=== PATIENT | male | born 1955 | race Two or more races ===

== ENCOUNTER 2017-10-29 12:34 | Emergency (ER) | payer SELFPAY ==
[~2017-10-29] VITALS: Ht 162.6 cm; Wt 67.0 kg
[2017-10-29 13:17] LABS: HEMATOCRIT 43.6 % (38.0-50.0); HEMOGLOBIN 14.7 G/DL (12.5-16.6); MCH 28.7 PG (29.0-34.0); MCHC 33.7 G/DL (30.0-36.0); MCV 85.2 FL (86-99); RBC DIS.WIDTH-CV 12.6 % (11.8-14.6); RED BLOOD COUNT 5.12 M/uL (4.00-5.50); WHITE BLOOD COUNT 11.5 K/uL (4.1-10.2)
[2017-10-29 13:22] LABS: CHLORIDE 108 mEq/L (99-109); POTASSIUM 4.1 mEq/L (3.7-5.4); SODIUM 140 mEq/L (136-147)
[2017-10-29 13:24] LABS: GLUCOSE 128 mg/dL (70-99)
[2017-10-29 13:28] LABS: CREATININE 1.2 mg/dL (0.6-1.3)
[2017-10-29 13:29] LABS: UREA NITROGEN (BUN) 22 mg/dL (9-23)
[2017-10-29 13:39] LABS: GFR ESTIMATE (CALCULATED) > 59 mL/min/ (58.99-99999)
[2017-10-29 13:57] LABS: IMM.PLATELET FRACTION 24.7 (1-7); PLAT.SUFFICIENCY DECREASED; PLATELET CLUMPS PRESENT - PLATELET COUNTS APPEARS DECREASED; PLATELET COUNT UNABLE TO REPORT K/uL (156-360)
[2017-10-29 14:58] LABS: D-DIMER ELISA < 150.00 ng/mLDDU (<230)
[2017-10-29 15:19] LABS: TROP-I INTERPRETATION NEGATIVE; TROPONIN-I < 0.01 ng/mL (0.0-0.30)
[2017-10-29 16:45] LABS: APPEARANCE CLEAR ((CLEAR)); BILIRUBIN NEGATIVE; BLOOD NEGATIVE; COLOR YELLOW ((YELLOW)); GLUCOSE (STRIP) 50; KETONES NEGATIVE; LEUKOCYTES NEGATIVE; NITRITE NEGATIVE; PROTEIN (STRIP) NEGATIVE; SPECIFIC GRAVITY 1.013 (1.000-1.030); UROBILINOGEN 0.2 MG/DL (0.2-1.0)
[2017-10-29 16:58] VITALS: BP 139/79
== END 2017-10-29 17:03 | disposition home or self-care (01) ==
LOC: EME 12:34
PROVIDERS: Emergency Medicine
DX: R55 Syncope and collapse (principal); I38 Endocarditis, valve unspecified; I10 Essential (primary) hypertension; R73.03 Prediabetes
CPT/HCPCS: 71046; 80048; 81003; 84484; 85027; 85379; 93005; 99281; 99285; J7030